=== PATIENT | male | born 1985 | race Caucasian/White ===

== ENCOUNTER 2016-08-21 23:52 | Inpatient (IN) | payer BC ==
[~2016-08-21] VITALS: Ht 182.9 cm; Wt 57.2 kg
[2016-08-22] MEDS ORDERED: LORazepam 1 MG TABLET PO ONE (01:15)
[2016-08-22 01:35] LABS: BASOPHILS # (AUTO) 0.04 K/uL (0.00-0.20); BASOPHILS % (AUTO) 0.4 % (0.0-2.0); EOSINOPHILS # (AUTO) 0.54 K/uL (0.00-0.70); EOSINOPHILS % (AUTO) 5.19 % (1.0-6.0); HEMATOCRIT 46.2 % (41-53); HEMOGLOBIN 16.1 g/dL (13.5-17.5); LYMPHOCYTES # (AUTO) 1.6 K/uL (1.0-4.8); LYMPHOCYTES % (AUTO) 15.7 % (22.0-44.0); MEAN CORPUSCULAR HEMOGLOBIN 32.3 pg (26.0-34.0); MEAN CORPUSCULAR HGB CONC 34.8 G/dL (31.0-37.0); MEAN CORPUSCULAR VOLUME 93 fL (80-100); MONOCYTES # (AUTO) 0.7 K/uL (0.1-1.0); MONOCYTES % (AUTO) 6.7 % (2.0-9.0); NEUTROPHILS # (AUTO) 7.5 K/uL (1.8-7.7); NEUTROPHILS % (AUTO) 72.1 % (40.0-70.0); PLATELET COUNT (AUTO) 262 K/uL (150-450); RED BLOOD CELL COUNT(AUTO) 4.98 MIL/uL (4.50-5.90); RED CELL DISTRIBUTION WIDTH 13.1 % (11.5-14.5); WHITE BLOOD COUNT (AUTO) 10.3 K/uL (4.5-11.0)
[2016-08-22 01:45] LABS: ANION GAP 13 mmol/L (8-16); CALCIUM, TOTAL 9.6 mg/dL (8.8-10.5); CARBON DIOXIDE 26 mmol/L (22-29); CHLORIDE 110 mmol/L (98-107); CREATININE 0.92 mg/dL (0.60-1.30); GLOMERULAR FILTR. RATE CALC > 60 mL/min (>60); POTASSIUM 4.1 mmol/L (3.5-5.1); SODIUM SERUM 149 mmol/L (136-145); UREA NITROGEN, BLOOD 16 mg/dL (7-18)
[2016-08-22] MEDS ORDERED: LORazepam 2 MG/ML VIAL IM ONE (01:45)
[2016-08-22 01:50] LABS: ALANINE AMINOTRANSFERASE 35 U/L (12-78); ALBUMIN 4.1 g/dL (3.4-5.0); ASPARTATE AMINOTRANSFERASE 21 U/L (15-37); BILIRUBIN,TOTAL 1.2 mg/dL (0.1-1.0); TOTAL PROTEIN, SERUM 7.4 g/dL (6.4-8.2)
[2016-08-22] MEDS ORDERED: SODIUM CHLORIDE 0.9% 1,000 ML IV ONE ×2 (04:30→13:30)
[2016-08-22] MEDS ORDERED: ONDANSETRON HCL 4 MG/2 ML VIAL IVP PRN (05:30)
[2016-08-22] MEDS ORDERED: ACETAMINOPHEN 325 MG TABLET PO PRN (05:30)
[2016-08-22] MEDS ORDERED: 0.9% SODIUM CHLORIDE 10 ML SYRINGE IVP PRN (05:30)
[2016-08-22] MEDS ORDERED: ALBUTEROL SULFATE 2.5 MG/0.5 ML NEB SOLUTION NEB PRN (05:45)
[2016-08-22] MEDS ORDERED: MORPHINE SULFATE 4 MG/ML SYRINGE IVP PRN (05:45)
[2016-08-22] MEDS ORDERED: BISACODYL 10 MG RECTAL RECTAL SUPPOSITORY PR PRN (05:45)
[2016-08-22] MEDS ORDERED: MAGNESIUM HYDROXIDE SUSPENSION 30 ML UDCUP PO PRN (05:45)
[2016-08-22] MEDS ORDERED: HYDROCODONE/ACETAMINOPHEN 5-325 MG TABLET PO PRN (05:45)
[2016-08-22 06:01] VITALS: BP 113/66
[2016-08-22 07:17] VITALS: BP 100/64
[2016-08-22] MEDS: SODIUM CHLORIDE 0.45% 1,000 ML IV SCH ×2 (08:40→17:45)
[2016-08-22 14:10] VITALS: BP 106/68
[2016-08-22] MEDS ORDERED: FentaNYL CITRATE-PF 100 MCG/2 ML VIAL ONE (15:23)
[2016-08-22] MEDS ORDERED: MIDAZOLAM HCL 5 MG/ML VIAL ONE (15:23)
[2016-08-22 15:38] VITALS: BP 116/61
[2016-08-22 16:07] LABS: APPEARANCE,URINE CLEAR (CLEAR); GLUCOSE, URINE (UA) NEGATIVE (NEGATIVE); KETONES,URINE 15 mg/dL (NEGATIVE); LEUKOCYTE ESTERASE ,URINE NEGATIVE (NEGATIVE); OCCULT BLOOD,URINE NEGATIVE (NEGATIVE); PROTEIN,URINE POS 1+ (NEGATIVE)
[2016-08-22 16:08] LABS: ADD UA MICROSCOPIC NO
[2016-08-22 19:59] VITALS: BP 107/60
[2016-08-22] MEDS ORDERED: PROPOFOL 1% 20 ML VIAL IVP ONE (20:59)
[2016-08-22] MEDS ORDERED: DEXAMETHASONE SOD PHOS 4 MG/ML VIAL IVP ONE (20:59)
[2016-08-22] MEDS ORDERED: FentaNYL CITRATE-PF 100 MCG/2 ML VIAL IVP ONE (20:59)
[2016-08-22] MEDS ORDERED: ONDANSETRON HCL 4 MG/2 ML VIAL IVP ONE (20:59)
[2016-08-22] MEDS ORDERED: LIDOCAINE HCL/PF 2% 5 ML VIAL IM ONE (20:59)
[2016-08-22] MEDS ORDERED: METOCLOPRAMIDE HCL 5 MG/ML 2 ML VIAL IVP ONE (20:59)
[2016-08-22] MEDS ORDERED: SUCCINYLCHOLINE CHLORIDE 20 MG/ML 10 ML VIAL IVP ONE (20:59)
[2016-08-22] MEDS ORDERED: PANTOPRAZOLE SODIUM 40 MG DR TABLET PO SCH (21:00)
== END 2016-08-22 21:00 | disposition home or self-care (01) | DRG 394 ==
LOC: EMS 23:54 → 6N 08-22 04:30
PROVIDERS: ADMIT Internal Medicine; ATTEND Internal Medicine
PROC: BD11YZZ Fluoroscopy of Esophagus using Other Contrast (ICD-10-PCS; 2016-08-22)
PROC: 0DC38ZZ Extirpation of Matter from Lower Esophagus, Via Natural or Artificial Opening Endoscopic (ICD-10-PCS; principal; 2016-08-22 16:00)
DX: T18.128A Food in esophagus causing other injury, initial encounter (principal); E87.0 Hyperosmolality and hypernatremia; R64 Cachexia; K20.0 Eosinophilic esophagitis; E80.6 Other disorders of bilirubin metabolism; E86.0 Dehydration; K29.60 Other gastritis without bleeding; R13.19 Other dysphagia; F19.10 Other psychoactive substance abuse, uncomplicated; F17.210 Nicotine dependence, cigarettes, uncomplicated; X58.XXXA Exposure to other specified factors, initial encounter; Y93.89 Activity, other specified; Y92.89 Other specified places as the place of occurrence of the external cause; Y99.8 Other external cause status; Z71.51 Drug abuse counseling and surveillance of drug abuser; Z71.6 Tobacco abuse counseling; Z98.890 Other specified postprocedural states; Z82.49 Family history of ischemic heart disease and other diseases of the circulatory system
CPT/HCPCS: 70360; 70450; 74230; 80307; 88305; 88312; 88313; 92610; 92611; 96360; 96372; 99285; G0480; J0330; J1100; J2060; J2250; J2405; J2704; J2765; J3010; J3490; J7030

== ENCOUNTER 2017-02-12 00:01 | Inpatient (IN) | payer SELFPAY ==
[~2017-02-12] VITALS: Ht 182.9 cm; Wt 64.0 kg
[2017-02-12 00:57] LABS: BASOPHILS % (AUTO) 1.4 % (0.0-2.0); EOSINOPHILS % (AUTO) 12.1 % (1.0-6.0); HEMATOCRIT 40.7 % (41-53); HEMOGLOBIN 13.9 g/dL (13.5-17.5); LYMPHOCYTES # (AUTO) 1.7 K/uL (1.0-4.8); LYMPHOCYTES % (AUTO) 36.8 % (22.0-44.0); MEAN CORPUSCULAR HEMOGLOBIN 32.4 pg (26.0-34.0); MEAN CORPUSCULAR HGB CONC 34.1 G/dL (31.0-37.0); MEAN CORPUSCULAR VOLUME 95 fL (80-100); MONOCYTES # (AUTO) 0.3 K/uL (0.1-1.0); MONOCYTES % (AUTO) 6.8 % (2.0-9.0); NEUTROPHILS % (AUTO) 42.9 % (40.0-70.0); PLATELET COUNT (AUTO) 197 K/uL (150-450); RED CELL DISTRIBUTION WIDTH 13.8 % (11.5-14.5); WHITE BLOOD COUNT (AUTO) 4.6 K/uL (4.5-11.0)
[2017-02-12] MEDS ORDERED: METOCLOPRAMIDE HCL 5 MG/ML 2 ML VIAL IVP ONE (01:00)
[2017-02-12] MEDS ORDERED: SODIUM CHLORIDE 0.9% 1,000 ML IV ONE ×3 (01:00→06:40)
[2017-02-12] MEDS ORDERED: PANTOPRAZOLE SODIUM 40 MG/VIAL IVP ONE (01:00)
[2017-02-12 01:02] LABS: ANION GAP 5 mmol/L (8-16); CALCIUM, TOTAL 8.7 mg/dL (8.8-10.5); CARBON DIOXIDE 30 mmol/L (22-29); CHLORIDE 110 mmol/L (98-107); CREATININE 0.76 mg/dL (0.60-1.30); GLOMERULAR FILTR. RATE CALC > 60 mL/min (>60); POTASSIUM 4.7 mmol/L (3.5-5.1); SODIUM SERUM 145 mmol/L (136-145); UREA NITROGEN, BLOOD 9 mg/dL (7-18)
[2017-02-12 01:07] LABS: ALANINE AMINOTRANSFERASE 39 U/L (12-78); ALBUMIN 3.5 g/dL (3.4-5.0); ASPARTATE AMINOTRANSFERASE 14 U/L (15-37); BILIRUBIN,TOTAL 0.2 mg/dL (0.1-1.0); TOTAL PROTEIN, SERUM 5.8 g/dL (6.4-8.2)
[2017-02-12] MEDS ORDERED: LORazepam 2 MG/ML VIAL IVP ONE ×2 (01:15)
[2017-02-12] MEDS ORDERED: DEXTROSE 5%-0.45% SODIUM CHL 1,000 ML IV ONE (03:00)
[2017-02-12] MEDS ORDERED: LORazepam 2 MG/ML VIAL IVP PRN (03:00)
[2017-02-12] MEDS ORDERED: MORPHINE SULFATE 10 MG/ML SYRINGE IVP PRN (03:00)
[2017-02-12 03:25] VITALS: BP 125/73
[2017-02-12] MEDS ORDERED: INFLUENZA VIRUS VACCINE QVS 2017-18 (3YR+)/PF 60 MCG/0.5 ML SYRINGE IM ONE (04:45)
[2017-02-12] MEDS ORDERED: MIDAZOLAM HCL 5 MG/ML VIAL ONE (06:56)
[2017-02-12] MEDS ORDERED: FentaNYL CITRATE-PF 100 MCG/2 ML VIAL ONE (06:56)
[2017-02-12] MEDS ORDERED: ACETAMINOPHEN 325 MG TABLET PO PRN (09:00)
[2017-02-12] MEDS ORDERED: PANTOPRAZOLE SODIUM 40 MG DR TABLET PO SCH (09:00)
[2017-02-12] MEDS ORDERED: PANTOPRAZOLE SODIUM 40 MG/VIAL IVP SCH (09:00)
[2017-02-12] MEDS ORDERED: DOCUSATE SODIUM 100 MG CAPSULE PO SCH (09:00)
[2017-02-12] MEDS ORDERED: MAGNESIUM HYDROXIDE SUSPENSION 30 ML UDCUP PO PRN (09:00)
[2017-02-12] MEDS ORDERED: OxyCODONE HCL/ACETAMINOPHEN 5-325 MG TABLET PO PRN (09:00)
[2017-02-12 11:33] VITALS: BP 125/73
[2017-02-12 15:44] VITALS: BP 109/54
[2017-02-12] MEDS ORDERED: PANT40TA25 PO (16:56)
== END 2017-02-12 17:20 | disposition home or self-care (01) | DRG 392 ==
LOC: EMS 00:02 → 6N 02:30
PROVIDERS: ADMIT Internal Medicine; ATTEND Internal Medicine
PROC: 0DC38ZZ Extirpation of Matter from Lower Esophagus, Via Natural or Artificial Opening Endoscopic (ICD-10-PCS; principal; 2017-02-12 07:15)
DX: K20.0 Eosinophilic esophagitis (principal); E87.8 Other disorders of electrolyte and fluid balance, not elsewhere classified; K22.2 Esophageal obstruction; T18.128A Food in esophagus causing other injury, initial encounter; E86.0 Dehydration; F15.10 Other stimulant abuse, uncomplicated; F17.210 Nicotine dependence, cigarettes, uncomplicated; X58.XXXA Exposure to other specified factors, initial encounter; Y93.89 Activity, other specified; Y92.89 Other specified places as the place of occurrence of the external cause; Y99.8 Other external cause status; Z28.21 Immunization not carried out because of patient refusal
CPT/HCPCS: 87081; 96361; 96374; 96375; 99285; C9113; J2060; J2250; J2765; J3010; J7030

== ENCOUNTER 2017-03-20 18:31 | Emergency (ER) | payer SELFPAY ==
[~2017-03-20] VITALS: Ht 182.9 cm; Wt 72.7 kg
[~2017-03-20 18:31] MED LIST: PANT40TA25 PO
[2017-03-20 19:17] VITALS: BP 128/74
== END 2017-03-20 19:17 | disposition home or self-care (01) ==
LOC: EMS 18:32
DX: R13.10 Dysphagia, unspecified (principal); R09.89 Other specified symptoms and signs involving the circulatory and respiratory systems; F15.90 Other stimulant use, unspecified, uncomplicated; F17.210 Nicotine dependence, cigarettes, uncomplicated
CPT/HCPCS: 99281